=== PATIENT | male | born 1970 | race Caucasian/White ===

== ENCOUNTER 2022-07-17 06:54 | Emergency (ER) | payer BC, OTHER ==
[~2022-07-17] VITALS: Ht 167 cm; Wt 109.0 kg
[2022-07-17] MEDS ORDERED: DOXYCYCLINE 100 MG (VIBRAMYCIN) TABLET PO STA (07:11)
[2022-07-17] MEDS ORDERED: NS IV 1000 ML 1,000 ML IV STA (07:11)
--- NOTE | 2022-07-17 07:11 | ED General ---
General Stated Complaint: FALL Source of Information: Patient Exam Limitations: No Limitations History of Present Illness Date Seen by Provider: Jul 17, 2022 Time Seen by Provider: 06:57 Initial Comments 52-year-old male with no pertinent past medical history other than greater than 40 pack years of smoking coming in via EMS from home after a syncopal episode. 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 Noticed some chills, cough, and general malaise. Unsure if he had a fever. He was getting ready to take the temperature of one of the children, and passed out. Landed forwards. Was only out for a moment. Never had any chest pain, palpitations, shortness of breath, abdominal pain, nausea, vomiting, diarrhea, weakness, numbness, headache, neck stiffness, or any other concerns. Has not had any medicines for just Tylenol today. Does not take any medicines daily. Otherwise denying any other acute complaints Allergies and Home Medications Allergies Coded Allergies: No Known Drug Allergies (Unverified , 07/17/22) Patient Home Medication List Home Medication List Reviewed: Yes Albuterol Sulfate (Ventolin Hfa) 90 Mcg Hfa.aer.ad, 2 PUFF INH Q4H PRN for WHEEZING Prescribed by: LALIT FELIX on 07/17/22742 Doxycycline Hyclate (Doxycycline Hyclate) 100 Mg Tablet, 100 MG PO BID Prescribed by: LALIT FELIX on 07/17/22742 Methylprednisolone (Methylprednisolone Dose Pack) 4 Mg Tab.ds.pk, 4 MG PO UD Prescribed by: LALIT FELIX on 07/17/22742 Review of Systems Review of Systems Constitutional: chills; No fever; malaise EENTM: no symptoms reported Respiratory: cough Cardiovascular: No chest pain; syncope Gastrointestinal: No abdominal pain Genitourinary: no symptoms reported Musculoskeletal: no symptoms reported Skin: no symptoms reported Psychiatric/Neurological: No Symptoms Reported Hematologic/Lymphatic: No Symptoms Reported Immunological/Allergic: no symptoms reported All Other Systems Reviewed Negative Unless Noted: Yes Past Ckedhzi-Otfvgm-Fkqhmo Hx Patient Social History Tobacco Use?: Yes Tobacco type used: Cigarettes Past Medical History Surgeries: Yes Orthopedic Physical Exam Vital Signs Vital Signs - First Documented 07/17/22 07:33 Temp 37.4 Pulse 97 Resp 18 B/P (MAP) 116/81 (93) Pulse Ox 91 O2 Delivery Room Air Capillary Refill : Height, Weight, BMI Height: '" Weight: lbs. oz. kg; BMI Method: General Appearance: No Apparent Distress, WD/WN Eyes: Bilateral Eye Normal Inspection HEENT: PERRL/EOMI, Normal ENT Inspection, Pharynx Normal Neck: Full Range of Motion, Normal Inspection, Non Tender, Supple Respiratory: Chest Non Tender, No Accessory Muscle Use, No Respiratory Distress, Wheezing Cardiovascular: Regular Rate, Rhythm, No Edema, Normal Peripheral Pulses Gastrointestinal: Normal Bowel Sounds, Non Tender, Soft; No Distended, No Guarding Back: Normal Inspection, No CVA Tenderness, No Vertebral Tenderness Extremity: Normal Capillary Refill, Normal Inspection, Normal Range of Motion, Non Tender, No Calf Tenderness, No Pedal Edema Neurologic/Psychiatric: Alert, Oriented x3, No Motor/Sensory Deficits, Normal 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, 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 Norm as Tested Skin: Normal Color, Warm/Dry Lymphatic: No Adenopathy Progress/Results/Core Measures Suspected Sepsis SIRS Temperature: Pulse: Respiratory Rate: Laboratory Tests 07/17/22 07:10: White Blood Count 7.5 Blood Pressure / Mean: Laboratory Tests 07/17/22 07:10: Creatinine 1.04, Platelet Count 247, Total Bilirubin 0.3 Results/Orders Lab Results Laboratory Tests Test 07/17/22 07:10 Range/Units White Blood Count 7.5 4.3-11.0 10^3/uL Red Blood Count 5.34 4.30-5.52 10^6/uL Hemoglobin 15.6 13.3-17.7 g/dL Hematocrit 46 40-54 % Mean Corpuscular Volume 86 80-99 fL Mean Corpuscular Hemoglobin 29 25-34 pg Mean Corpuscular Hemoglobin Concent 34 32-36 g/dL Red Cell Distribution Width 14.0 10.0-14.5 % Platelet Count 247 130-400 10^3/uL Mean Platelet Volume 8.7 L 9.0-12.2 fL Immature Granulocyte % (Auto) 1 % Neutrophils (%) (Auto) 52 42-75 % Lymphocytes (%) (Auto) 31 12-44 % Monocytes (%) (Auto) 15 H 0-12 % Eosinophils (%) (Auto) 1 0-10 % Basophils (%) (Auto) 1 0-10 % Neutrophils # (Auto) 3.9 1.8-7.8 10^3/uL Lymphocytes # (Auto) 2.3 1.0-4.0 10^3/uL Monocytes # (Auto) 1.1 H 0.0-1.0 10^3/uL Eosinophils # (Auto) 0.1 0.0-0.3 10^3/uL Basophils # (Auto) 0.1 0.0-0.1 10^3/uL Immature Granulocyte # (Auto) 0.1 0.0-0.1 10^3/uL Sodium Level 135 135-145 MMOL/L Potassium Level 4.0 3.6-5.0 MMOL/L Chloride Level 101 98-107 MMOL/L Carbon Dioxide Level 24 21-32 MMOL/L Anion Gap 10 5-14 MMOL/L Blood Urea Nitrogen 14 7-18 MG/DL Creatinine 1.04 0.60-1.30 MG/DL Estimat Glomerular Filtration Rate 86 BUN/Creatinine Ratio 13 Glucose Level 144 H 70-105 MG/DL Calcium Level 8.8 8.5-10.1 MG/DL Corrected Calcium 8.6 8.5-10.1 MG/DL Magnesium Level 1.9 1.6-2.4 MG/DL Total Bilirubin 0.3 0.1-1.0 MG/DL Aspartate Amino Transf (AST/SGOT) 33 5-34 U/L Alanine Aminotransferase (ALT/SGPT) 30 0-55 U/L Alkaline Phosphatase 68 40-136 U/L Troponin I < 0.30 <0.30 NG/ML Pro-B-Type Natriuretic Peptide 18.0 <125.0 PG/ML Total Protein 7.2 6.4-8.2 GM/DL Albumin 4.2 3.2-4.5 GM/DL Influenza Type A (RT-PCR) Detected H Not Detecte Influenza Type B (RT-PCR) Not Detected Not Detecte SARS-CoV-2 RNA (RT-PCR) Not Detected Not Detecte My Orders Orders - LALIT FELIX MD Cbc With Automated Diff (07/17/22 07:05) Comprehensive Metabolic Panel (07/17/22 07:05) Magnesium (07/17/22 07:05) Influenza A And B By Pcr (07/17/22 07:05) Troponin I Fs (07/17/22 07:05) Chest 1 View Ap/Pa Only (07/17/22 07:05) Ed Iv/Invasive Line Start (07/17/22 07:05) Ekg Tracing (07/17/22 07:05) Monitor-Rhythm Ecg Trace Only (07/17/22 07:05) Covid 19 Inhouse Test (07/17/22 07:05) Probnp Fs (07/17/22 07:05) Acetaminophen Tablet (Tylenol Tablet) (07/17/22 07:15) Albuterol/Ipra Inhalation Soln (Duoneb I (07/17/22 07:15) Ns Iv 1000 Ml (Sodium Chloride 0.9%) (07/17/22 07:11) Dexamethasone Injection (Decadron Injec (07/17/22 07:15) Doxycycline Hyclate Tablet (Vibramycin T (07/17/22 07:11) Medications Given in ED Current Medications Medications Dose Ordered Sig/Dana Route Start Time Stop Time Status Last Admin Dose Admin Acetaminophen 1,000 mg ONCE ONCE PO 07/17/22 07:15 07/17/22 07:16 DC 07/17/22 07:24 1,000 MG Albuterol/ Ipratropium 3 ml ONCE ONCE INH 07/17/22 07:15 07/17/22 07:16 DC 07/17/22 07:22 3 ML Dexamethasone Sodium Phosphate 8 mg ONCE ONCE IV 07/17/22 07:15 07/17/22 07:16 DC 07/17/22 07:22 8 MG Vital Signs/I&O 07/17/22 07:33 Temp 37.4 Pulse 97 Resp 18 B/P (MAP) 116/81 (93) Pulse Ox 91 O2 Delivery Room Air Capillary Refill : Progress Note : Progress Note 52-year-old male with above history coming in after syncopal episode as well as being sick with what sounds like a viral syndrome. ABCs were intact and vitals were stable on presentation. Physical exam reassuring including a nonfocal neuro exam. EKG with no acute ischemic changes. Chest x-ray clear with no acute abnormalities. An IV was placed and basic labs were obtained and were reassuring including no signs of anemia, normal kidney function, negative troponin, normal electrolytes. Viral testing positive for influenza A. Given a bolus of fluids. He was wheezing on exam and given his significant smoking history, likely has undiagnosed COPD. We will treat him as if this is an exacerbation as well. ECG Initial ECG Impression Date: Jul 17, 2022 Initial ECG Impression Time: 07:14 Initial ECG Rate: 95 Initial ECG Rhythm: Normal Sinus Comment Narrow QRS, borderline left axis deviation, no significant ST changes, T wave flattening in aVL which is nonspecific Diagnostic Imaging Diagonstic Imaging: Xray (chest) Comments MED REC#: [id number] PT STATUS: REG ER : 1970 PHYSICIAN: LALIT FELIX MD ADMIT DATE: 07/17/22/ER FS Draft Date of Exam:07/17/22 CHEST 1 VIEW AP/PA ONLY PATIENT HISTORY: syncope, SOB. TECHNIQUE: Single frontal view of the chest. COMPARISON: None FINDINGS: The lung volumes are normal. No focal consolidation is seen. No large pleural effusion or pneumothorax is seen. The cardiomediastinal silhouette is normal in size and contour. No acute osseous abnormality is seen. IMPRESSION: No acute pulmonary abnormality seen. Dictated on workstation # [id number] Dict: 07/17/2231 Trans: 07/17/22 0742 [id number] Interpreted by: GABRIELLA FRAZIER MD Electronically signed by: Departure Impression Primary Impression: Syncope Qualified Codes: R55 - Syncope and collapse Additional Impressions: COPD (chronic obstructive pulmonary disease) Qualified Codes: J44.1 - Chronic obstructive pulmonary disease with (acute) exacerbation Influenza A Disposition: 01 HOME, SELF-CARE Condition: Stable Departure-Patient Inst. Decision time for Depature: 08:12 Referrals: NO,LOCAL PHYSICIAN (PCP/Family) Primary Care Physician Patient Instructions: Chronic Obstructive Pulmonary Disease (COPD) (DC), Flu, Adult ED Add. Discharge Instructions: Given your smoking history and how your lungs sound on exam with the wheezing, we are concerned you likely have COPD that has not been diagnosed. Around of steroids that you can start tomorrow, antibiotics that you will take the next dose tonight, an inhaler that you can use every 2-4 hours as needed will all be sent to your pharmacy. Scripts Methylprednisolone (Methylprednisolone Dose Pack) 4 Mg Tab.ds.pk 4 MG PO UD for 6 Days, #21 PKG PER DOSE PACK INSTRUCTIONS Prov: LALIT FELIX MD 07/17/22 Doxycycline Hyclate (Doxycycline Hyclate) 100 Mg Tablet 100 MG PO BID for 7 Days, #14 TAB 0 Refills Prov: LALIT FELIX MD 07/17/22 Albuterol Sulfate (Ventolin Hfa) 90 Mcg Hfa.aer.ad 2 PUFF INH Q4H PRN for WHEEZING for 30 Days, #1 EA 1 Refill Prov: LALIT FELIX MD 07/17/22 Work/School Note: Work Release Form Date Seen in the Emergency Department: Jul 17, 2022 Return to Work: Jul 19, 2022 Restrictions: Return-No Fever (24hrs) LALIT FELIX MD Jul 17, 2022 07:11
[2022-07-17] MEDS ORDERED: ACETAMINOPHEN 500 MG TAB (TYLENOL) PO ONE (07:15)
[2022-07-17] MEDS ORDERED: RT-ALBUTEROL/IPRATROPIUM 3 ML (DUONEB) VIAL INH ONE (07:15)
[2022-07-17 07:19] LABS: BASOPHILS # (AUTO) 0.1 10^3/uL (0.0-0.1); BASOPHILS % (AUTO) 1 % (0-10); EOSINOPHILS # (AUTO) 0.1 10^3/uL (0.0-0.3); EOSINOPHILS % (AUTO) 1 % (0-10); HEMATOCRIT 46 % (40-54); HEMOGLOBIN 15.6 g/dL (13.3-17.7); LYMPHOCYTES # (AUTO) 2.3 10^3/uL (1.0-4.0); LYMPHOCYTES % (AUTO) 31 % (12-44); MEAN CORPUSCULAR HEMOGLOBIN 29 pg (25-34); MEAN CORPUSCULAR HGB CONC 34 g/dL (32-36); MEAN CORPUSCULAR VOLUME 86 fL (80-99); MEAN PLATELET VOLUME 8.7 fL (9.0-12.2); MONOCYTES # (AUTO) 1.1 10^3/uL (0.0-1.0); MONOCYTES % (AUTO) 15 % (0-12); NEUTROPHILS # (AUTO) 3.9 10^3/uL (1.8-7.8); NEUTROPHILS % (AUTO) 52 % (42-75); PLATELET COUNT 247 10^3/uL (130-400); WHITE BLOOD COUNT 7.5 10^3/uL (4.3-11.0)
[2022-07-17 07:33] VITALS: BP 116/81
--- NOTE | 2022-07-17 07:42 | Diagnostic Imaging Report ---
PATIENT HISTORY: syncope, SOB. TECHNIQUE: Single frontal view of the chest. COMPARISON: None FINDINGS: The lung volumes are normal. No focal consolidation is seen. No large pleural effusion or pneumothorax is seen. The cardiomediastinal silhouette is normal in size and contour. No acute osseous abnormality is seen. IMPRESSION: No acute pulmonary abnormality seen. Dictated by: Dictated on workstation # [id number]
[2022-07-17] MEDS ORDERED: ALBU18HF2 INH (07:43)
[2022-07-17] MEDS ORDERED: DOXY100T2 PO (07:43)
[2022-07-17] MEDS ORDERED: METH4TAB10 PO (07:43)
[2022-07-17 07:58] LABS: ALANINE AMINOTRANSFERASE 30 U/L (0-55); ALKALINE PHOSPHATASE 68 U/L (40-136); BILIRUBIN,TOTAL 0.3 MG/DL (0.1-1.0); BUN/CREATININE RATIO 13; CALCIUM 8.8 MG/DL (8.5-10.1); CARBON DIOXIDE 24 MMOL/L (21-32); CHLORIDE 101 MMOL/L (98-107); CREATININE SERUM 1.04 MG/DL (0.60-1.30); GFR ESTIMATED 86; GLUCOSE 144 MG/DL (70-105); MAGNESIUM 1.9 MG/DL (1.6-2.4); SODIUM 135 MMOL/L (135-145); TOTAL PROTEIN 7.2 GM/DL (6.4-8.2)
[2022-07-17 07:59] LABS: ALBUMIN 4.2 GM/DL (3.2-4.5)
== END 2022-07-17 08:20 | disposition home or self-care (01) ==
LOC: ER FS 07:02
DX: J10.1 Influenza due to other identified influenza virus with other respiratory manifestations (principal); J44.9 Chronic obstructive pulmonary disease, unspecified; R55 Syncope and collapse; F17.210 Nicotine dependence, cigarettes, uncomplicated; Z20.822 Contact with and (suspected) exposure to COVID-19
CPT/HCPCS: 36415; 71045; 80053; 83735; 83880; 84484; 85025; 87636; 93005; 93041